=== PATIENT | female | born 2000 | race Caucasian/White ===

== ENCOUNTER 2018-10-26 10:20 | Day surgery (SDC) | payer OTHER ==
[~2018-10-26] VITALS: Ht 162.6 cm; Wt 72.6 kg
--- NOTE | ~2018-10-26 | OR ---
[facility] [address] [place], [place] [address] Draft DATE OF OPERATION: 10/26/2018 SURGEON: Yelena Barker DO PREOPERATIVE DIAGNOSES: 1. Missed . 2. Rh positive. POSTOPERATIVE DIAGNOSES: 1. Missed . 2. Rh positive. PROCEDURES PERFORMED: Suction D and C. [employer]URNA[employer] OPERATOR: None. ANESTHESIA: General. ESTIMATED BLOOD LOSS: 50 mL. SPECIMEN: Products of conception. FINDINGS: Normal external genitalia, vagina, and cervix. The cervix was closed and easily dilated. Products of conception noted in the suction tubing. The uterus was invalid and hemostatic at the end of procedure. COMPLICATIONS: None. INDICATIONS: Ms. Mejia is a pleasant 18-year-old white female, who presented with abnormal rise in quant hCG, followed by serial ultrasounds demonstrating no viable intrauterine . She is diagnosed with a blighted ovum. We reviewed options for treatment of blighted ovum, including expectant management, medical management, or surgical PATIENT NAME: NOAH MEJIA OPERATIVE REPORT DATE OF : [birth year] REPORT #: [id number] PHYSICIAN: YELENA BARKER DO PCP: GEORGINA RAMSAY REPORT IS CONFIDENTIAL AND NOT TO BE RELEASED WITHOUT AUTHORIZATION [facility] [address] [place], [place] [address] Draft management with suction D and C. the patient requested suction D and C. She is Rh positive. Risks, benefits, and alternatives were discussed in detail with the patient. The patient understands and wished to proceed with the procedure. DESCRIPTION OF PROCEDURE: The patient was taken to the operating room where a time-out was performed to confirm correct patient and correct procedure. General anesthesia was adequately established. The patient was prepped and draped in the dorsal lithotomy position with the feet in Yellofin stirrups. ICPs were on running and no preoperative heparin was indicated. The patient did receive doxycycline 200 mg p.o. 1 hour preoperatively per ACOG guidelines. The bladder was drained and a weighted speculum was placed in the vagina and the anterior lip of the cervix was grasped with an Allis clamp. The cervix was noted to be closed. It was gently serially dilated using Hegar dilators to a #9. A #9 curved suction curette was then selected, placed into the cervical os and advanced gently to the fundus. Suction was obtained to the green zone and the curved curette was slowly withdrawn while rotating to perform circumferential curettage. Products of conception were noted in the suction tubing. Two additional passes were made with suction curette with careful advancement to the uterine fundus. No products of conception were noted on the final pass. A sharp curette was then selected and advanced gently to the fundus. The uterus was probed and a small amount of retained products were noted along the posterior wall. These were very gently curettaged sharply. One final pass with the suction curette was then performed with no additional products of conception. Uterus involuted and bleeding was scant. The patient did receive 20 units of Pitocin in her bag of LR. The Allis clamp was removed and the patient was then taken to PACU in stable condition. Sponge, needle, and instrument count was correct x2 at the end of the procedure. Yelena Barker DO JDW/MODL /[id number] Copies: PATIENT NAME: NOAH MEJIA OPERATIVE REPORT DATE OF : [birth year] REPORT #: [id number] PHYSICIAN: YELENA BARKER DO PCP: GEORGINA RAMSAY REPORT IS CONFIDENTIAL AND NOT TO BE RELEASED WITHOUT AUTHORIZATION [address] [address] Draft ~ PATIENT NAME: NOAH MEJIA OPERATIVE REPORT DATE OF : [birth year] REPORT #: [id number] PHYSICIAN: YELENA BARKER DO PCP: GEORGINA RAMSAY REPORT IS CONFIDENTIAL AND NOT TO BE RELEASED WITHOUT AUTHORIZATION
[2018-10-26] MEDS ORDERED: FOLIC ACID0.8 MG PO (10:50)
[2018-10-26] MEDS ORDERED: PRENATAL TABLE1 EAC1 PO (10:51)
--- NOTE | 2018-10-26 12:42 | NUR ---
10/26/18 1242 Kalpana Torres 1237 PT TO PACU WITH ORAL AIRWAY IN PLACE O2 PLACED VIA MASK RESP NORMARL.
--- NOTE | 2018-10-26 14:10 | NUR ---
PATIENT TOLERATED JELLO. PATIENT MEDICATED FOR PAIN WITH 1 TAB OF NORCO. PATIENT ASSISTED OOB AND TO BATHROOM. GAIT STEADY. VOID WITHOUT DIFFICULTY. GAIT STEADY BACK TO ROOM. PATIENT BACK IN BED. WARM BLANKETS GIVEN TO PATIENT. AT BEDSIDE.
[2018-10-26] MEDS ORDERED: NORCO 5-325 TA1 EACH PO (14:29)
[2018-10-26] MEDS ORDERED: IBUPROFEN800 MG PO (14:29)
--- NOTE | 2018-10-26 14:59 | NUR ---
1440: DISCHARGE INSTRUCTIONS GIVEN TO PATIENT AND . IV DC'D WNL. PATIENT DRESSED WITH HELP FROM . PATIENT DISCHARGED TO HOME WITH VIA WHEELCHAIR.
== END 2018-10-26 14:55 | disposition home or self-care (01) ==
LOC: OPS 10:20 → DS 10:20 → OPS 12:00
PROVIDERS: Obstetrics & Gynecology
PROC: 10D17ZZ Extraction of Products of Conception, Retained, Via Natural or Artificial Opening (ICD-10-PCS; principal; 2018-10-26 12:00)
DX: O02.1 Missed abortion (principal); Z67.90 Unspecified blood type, Rh positive
CPT/HCPCS: 00952; 36415; 85027; 88305; J1100; J1170; J1885; J2250; J2405; J2590; J2704; J3010; J7120